=== PATIENT | male | born 1995 | race Caucasian/White ===

== ENCOUNTER 2019-05-03 20:19 | Emergency (ER) | payer OTHER ==
[2019-05-03 21:02] VITALS: BP 124/75; PULSE 105; RESP 20; TEMP 98.4
--- NOTE | 2019-05-03 21:19 | XR ---
EXAMINATION TYPE: XR ankle complete RT DATE OF EXAM: 05/03/2019 COMPARISON: NONE HISTORY: Pain TECHNIQUE: 3 views FINDINGS: Ankle mortise is anatomic. I see no fracture nor dislocation. Joint spaces are normal. IMPRESSION: Negative right ankle exam.
--- NOTE | 2019-05-03 21:19 | XR ---
EXAMINATION TYPE: XR foot complete RT DATE OF EXAM: 05/03/2019 COMPARISON: NONE HISTORY: Foot pain TECHNIQUE: 3 views FINDINGS: Metatarsals are intact. I see no fracture nor dislocation. Joint spaces are normal. IMPRESSION: Negative right foot exam.
--- NOTE | 2019-05-03 22:01 | ED ---
Lower Extremity Injury HPI - General Chief Complaint: Extremity Injury, Lower Stated Complaint: R Foot Injury Time Seen by Provider: 05/03/19 21:46 Source: patient Mode of arrival: ambulatory Limitations: no limitations - History of Present Illness Initial Comments: Patient is a 23-year-old male presenting to the emergency Department with complaints of right foot pain. Patient states he slipped and fell in a store 2 weeks ago and he's been having pain in the top of his foot since then. He thinks when he slipped his foot may have went underneath a cabinet. He states it hurts when he is walking. He denies any other injuries from the fall. He has no other complaints at this time. Upon arrival to the ER, his vital signs are stable. - Related Data Allergies Allergy/AdvReac Type Severity Reaction Status Date / Time No Known Allergies Allergy Verified 05/03/19 21:02 Review of Systems ROS Statement: Those systems with pertinent positive or pertinent negative responses have been documented in the HPI. ROS Other: All systems not noted in ROS Statement are negative. Past Medical History Past Medical History: No Reported History History of Any Multi-Drug Resistant Organisms: None Reported Past Surgical History: Orthopedic Surgery Additional Past Surgical History / Comment(s): lt knee Past Psychological History: No Psychological Hx Reported Smoking Status: Current every day smoker Past Alcohol Use History: None Reported Past Drug Use History: None Reported General Exam - General Exam Comments Initial Comments: GENERAL: Well-appearing, well-nourished and in no acute distress. HEAD: Atraumatic, normocephalic. EYES: Pupils equal round and reactive to light, extraocular movements intact, sclera anicteric, conjunctiva are normal. ENT: Moist mucous membranes. NECK: Normal range of motion, supple without lymphadenopathy or JVD. LUNGS: Breath sounds clear to auscultation bilaterally and equal. No wheezes rales or rhonchi. HEART: Regular rate and rhythm without murmurs, rubs or gallops. ABDOMEN: Soft, nontender, normoactive bowel sounds. No guarding, no rebound. No masses appreciated. EXTREMITIES: Mild pain with palpation of dorsal aspect of the right foot. There is mild bruising to the area. No swelling. He is neurovascular intact. Patient is full range of motion of his toes and ankle. No clubbing or cyanosis. NEUROLOGICAL: Normal speech, normal gait. PSYCH: Normal mood, normal affect. SKIN: Warm, Dry, normal turgor, no rashes or lesions noted. Limitations: no limitations Course Vital Signs 05/03/19 21:00 Temperature 98.4 F Pulse Rate 105 H Respiratory 20 Rate Blood Pressure 124/75 O2 Sat by Pulse 100 Oximetry Medical Decision Making - Medical Decision Making Patient is a 23-year-old male presenting of right foot pain that happened after slip and fall 2 weeks ago. X-rays reveal no acute fractures dislocations. Discussed with patient this most likely a contusion to the top of the foot. He'll continue to use ice and Motrin for discomfort. He will follow-up if symptoms persist. He is in agreement with this plan of care. He is stable for discharge. Disposition Clinical Impression: Contusion of right foot Disposition: HOME SELF-CARE Condition: Stable Instructions (If sedation given, give patient instructions): Foot Contusion (ED) Additional Instructions: Please return to the Emergency Department if symptoms worsen or any other concerns. Continue to ice the area as well as ibuprofen for pain. Follow-up with PCP in 1-2 weeks if symptoms persist. Is patient prescribed a controlled substance at d/c from ED?: No Referrals: None,Stated [Primary Care Provider] - 1-2 days
== END 2019-05-03 22:08 | disposition home or self-care (01) ==
LOC: EC 20:19
DX: S90.31XA Contusion of right foot, initial encounter (principal); F17.200 Nicotine dependence, unspecified, uncomplicated; W01.0XXA Fall on same level from slipping, tripping and stumbling without subsequent striking against object, initial encounter; Y92.512 Supermarket, store or market as the place of occurrence of the external cause
CPT/HCPCS: 99283

== ENCOUNTER 2019-06-11 11:16 | Emergency (ER) | payer SELFPAY ==
[2019-06-11 11:29] VITALS: BP 105/73; PULSE 109; RESP 18; TEMP 100.3
--- NOTE | 2019-06-11 11:52 | XR ---
EXAMINATION TYPE: XR foot complete LT , 3 VIEWS DATE OF EXAM ORDERED: 06/11/2019 HISTORY: injury. COMPARISON: None. FINDINGS: No fracture, dislocation or other acute osseous lesion is seen. IMPRESSION: NO ACUTE OSSEOUS LESION.
[2019-06-11] MEDS ORDERED: NAPROXEN 250 MG TAB PO STA (11:56)
[2019-06-11] MEDS ORDERED: ACETAMINOPHEN TAB 500 MG TAB PO STA (11:56)
--- NOTE | 2019-06-11 12:05 | ED ---
Lower Extremity Injury HPI - General Chief Complaint: Extremity Injury, Lower Stated Complaint: foot injury Time Seen by Provider: 06/11/19 11:44 Source: patient, RN notes reviewed, old records reviewed Mode of arrival: ambulatory Limitations: no limitations - History of Present Illness Initial Comments: This Patient is a 24-year-old male presents emergency department today for evaluation with concern for an abrasion over the dorsum of his left foot. Patient reports that he was jumping over a wooden fence while playing with the dog and scraped the top of his foot. He complains of swelling and pain with ambulation. Patient states that he's had a low-grade fever primary cc otherwise was feeling well. He denies any sick cough congestion sore throat, abdominal pain nausea or vomiting. His tetanus shot is up-to-date. - Related Data Allergies Allergy/AdvReac Type Severity Reaction Status Date / Time ibuprofen [From Motrin] Allergy Swelling Verified 06/11/19 11:30 Review of Systems ROS Statement: Those systems with pertinent positive or pertinent negative responses have been documented in the HPI. ROS Other: All systems not noted in ROS Statement are negative. Past Medical History Past Medical History: No Reported History History of Any Multi-Drug Resistant Organisms: None Reported Past Surgical History: Orthopedic Surgery Additional Past Surgical History / Comment(s): lt knee Past Psychological History: No Psychological Hx Reported Smoking Status: Current every day smoker Past Alcohol Use History: None Reported Past Drug Use History: None Reported General Exam - General Exam Comments Initial Comments: 24 year old male, no distress. Limitations: no limitations General appearance: alert, in no apparent distress Head exam: Present: atraumatic, normocephalic, normal inspection Eye exam: Present: normal appearance ENT exam: Present: normal exam Neck exam: Present: normal inspection. Absent: tenderness, meningismus, lymphadenopathy Respiratory exam: Present: normal lung sounds bilaterally. Absent: respiratory distress, wheezes, rales, rhonchi, stridor GI/Abdominal exam: Present: soft, normal bowel sounds. Absent: distended, tenderness, guarding, rebound, rigid Extremities exam: Present: normal inspection, full ROM, normal capillary refill, other (abrasion over 3cm over dorsum of foot). Absent: tenderness, pedal edema, joint swelling, calf tenderness Back exam: Present: normal inspection Neurological exam: Present: alert, oriented X3, CN II-XII intact Psychiatric exam: Present: normal affect, normal mood Skin exam: Present: warm, dry, intact, normal color. Absent: rash Course Vital Signs 06/11/19 11:27 Temperature 100.3 F H Pulse Rate 109 H Respiratory 18 Rate Blood Pressure 105/73 O2 Sat by Pulse 99 Oximetry Medical Decision Making - Medical Decision Making Patient is a 24-year-old male who presents emergency department today for evaluation for concern for an abrasion over the dorsum of his left foot Pain and Swelling after He Jumped over a Fence. At This Time Patient Does Have Range Of Motion of the Foot. Does Have Some Swelling over the Dorsum of the Foot. X- Rays Completed Name for Acute Process. TDAP Is Up-To-Date. Patient's Abrasion Was Cleaned and Dressed. All Questions Answered Return Parameters Were Discussed. - Radiology Data Radiology results: report reviewed Foot x-rays negative for any acute osseous lesion. Disposition Clinical Impression: Abrasion, Foot sprain Disposition: HOME SELF-CARE Condition: Good Instructions (If sedation given, give patient instructions): Abrasion (ED), Foot Sprain (ED) Additional Instructions: Please use medication as discussed. GEN for any signs of infection including redness swelling or drainage. Keep the area clean and dry. Use soap and water to clean the abrasion with antibiotic ointment. Use the SHARRI wrap as discussed. Please follow up with family doctor if symptoms have not improved over the next two days. Please return to the emergency room if your symptoms increase or worsen or for any other concerns. Is patient prescribed a controlled substance at d/c from ED?: No Referrals: None,Stated [Primary Care Provider] - 1-2 days Gabe Pickett MD [REFERRING] - 1-2 days Time of Disposition: 12:04
== END 2019-06-11 12:16 | disposition home or self-care (01) ==
LOC: EC 11:16
DX: S93.602A Unspecified sprain of left foot, initial encounter (principal); F17.200 Nicotine dependence, unspecified, uncomplicated; Z88.6 Allergy status to analgesic agent; W22.8XXA Striking against or struck by other objects, initial encounter
CPT/HCPCS: 99284

== ENCOUNTER 2019-07-21 05:30 | Emergency (ER) | payer SELFPAY ==
[2019-07-21 05:38] VITALS: BP 123/71; PULSE 78; RESP 18; TEMP 98
[2019-07-21] MEDS ORDERED: ACET/COD 300 MG/30 MG STARTER PACK 6 TAB BTL PO STA (06:09)
--- NOTE | 2019-07-21 06:10 | ED ---
Extremity Problem HPI - General Chief complaint: Extremity Problem,Nontraumatic Stated complaint: R arm weakness Time Seen by Provider: 07/21/19 06:02 Source: patient, RN notes reviewed Mode of arrival: ambulatory Limitations: no limitations - History of Present Illness Initial comments: 24-year-old male presents emergency department to complaint of arm pain. Patient states primarily his right arm. 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 Patient he grabs the bags and throws them into the back in the same direction each time. Patient is right-hand dominant. No paresthesias. Patient states that hurts when he moves his wrist or makes a fist. Patient denies any trauma. Patient prior surgeries. No pain past his mid forearm. - Related Data Previous Rx's Medication Instructions Recorded predniSONE 50 mg PO DAILY #5 tab 07/21/19 Allergies Allergy/AdvReac Type Severity Reaction Status Date / Time bee venom protein (honey bee) Allergy Anaphylaxis Verified 07/21/19 05:38 cat dander Allergy Wheezing Verified 07/21/19 05:38 ibuprofen [From Motrin] Allergy Swelling Verified 06/11/19 11:30 Review of Systems ROS Statement: Those systems with pertinent positive or pertinent negative responses have been documented in the HPI. ROS Other: All systems not noted in ROS Statement are negative. Past Medical History Past Medical History: Asthma History of Any Multi-Drug Resistant Organisms: None Reported Past Surgical History: Orthopedic Surgery Additional Past Surgical History / Comment(s): lt knee Past Psychological History: No Psychological Hx Reported Smoking Status: Current every day smoker Past Alcohol Use History: Rare Past Drug Use History: Marijuana General Exam Limitations: no limitations General appearance: alert, in no apparent distress Head exam: Present: atraumatic, normocephalic, normal inspection Eye exam: Present: normal appearance, PERRL, EOMI. Absent: scleral icterus, conjunctival injection, periorbital swelling ENT exam: Present: normal exam, normal oropharynx, mucous membranes moist Neck exam: Present: normal inspection, full ROM. Absent: tenderness, meningismus, lymphadenopathy Respiratory exam: Present: normal lung sounds bilaterally. Absent: respiratory distress, wheezes, rales, rhonchi, stridor Cardiovascular Exam: Present: regular rate, normal rhythm, normal heart sounds. Absent: systolic murmur, diastolic murmur, rubs, gallop, clicks Extremities exam: Present: other (Pain with radial deviation, wrist flexion-extension mild tenderness over the proximal forearm and wrist region no erythema no swelling radial pulses equal bilaterally, cap refill less than 2 seconds) Course Vital Signs 07/21/19 05:33 Temperature 98 F Pulse Rate 78 Respiratory 18 Rate Blood Pressure 123/71 O2 Sat by Pulse 100 Oximetry Medical Decision Making - Medical Decision Making 24-year-old male presented for arm pain. 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 Patient treated for acute tendinitis. Patient has ALLERGY to ibuprofen was started on prednisone advised to take 2 days off work, rest, ice. Patient will follow-up PCP or orthopedics. Disposition Clinical Impression: Tendinitis of right wrist Disposition: HOME SELF-CARE Condition: Stable Instructions (If sedation given, give patient instructions): Tendinitis (ED) Additional Instructions: Please return to the Emergency Department if symptoms worsen or any other concerns. Prescriptions: predniSONE 50 mg PO DAILY #5 tab Is patient prescribed a controlled substance at d/c from ED?: No Referrals: None,Stated [Primary Care Provider] - 1-2 days Time of Disposition: 06:10
== END 2019-07-21 06:17 | disposition home or self-care (01) ==
LOC: EC 05:30
DX: M77.9 Enthesopathy, unspecified (principal); M62.81 Muscle weakness (generalized); F17.200 Nicotine dependence, unspecified, uncomplicated; Z91.030 Bee allergy status; Z91.048 Other nonmedicinal substance allergy status; Z88.6 Allergy status to analgesic agent; Z98.890 Other specified postprocedural states
CPT/HCPCS: 99283

== ENCOUNTER 2020-06-06 21:23 | Emergency (ER) | payer OTHER ==
[2020-06-06 21:40] VITALS: TEMP 97.3
[2020-06-06] MEDS ORDERED: HYDROmorphone 1 MG/ML 1 ML SYRINGE IVP STA (21:56)
[2020-06-06] MEDS ORDERED: SODIUM CHLORIDE 0.9% 1,000 ML IV STA (21:56)
[2020-06-06 22:15] LABS: Basophils # (A) 0.1 k/uL (0-0.2); Basophils % (A) 1 %; Eosinophils # (A) 0.4 k/uL (0-0.7); Eosinophils % (A) 3 %; HCT 45.5 % (39.0-53.0); HGB 15.7 gm/dL (13.0-17.5); Lymphocytes # (A) 2.6 k/uL (1.0-4.8); Lymphocytes % (A) 20 %; MCH 30.4 pg (25.0-35.0); MCHC 34.4 g/dL (31.0-37.0); MCV 88.4 fL (80.0-100.0); Mean Platelet Volume 7.7; Monocytes # (A) 0.6 k/uL (0-1.0); Monocytes % (A) 5 %; Neutrophils # (A) 9.1 k/uL (1.3-7.7); Neutrophils % (A) 70 %; Platelet Count 166 k/uL (150-450); RBC 5.15 m/uL (4.30-5.90); RDW 11.9 % (11.5-15.5); WBC 12.9 k/uL (3.8-10.6)
[2020-06-06 22:25] LABS: ALT 21 U/L (4-49); AST 41 U/L (17-59); African American GFR (CKD) >90 (>60 ml/min/1.73 sqM); Albumin 4.5 g/dL (3.5-5.0); Alcohol <10 mg/dL; Alkaline Phosphatase 86 U/L (38-126); Anion Gap 7 mmol/L; Blood Urea Nitrogen 11 mg/dL (9-20); Calcium 9.3 mg/dL (8.4-10.2); Carbon Dioxide 30 mmol/L (22-30); Chloride 102 mmol/L (98-107); Creatine Kinase 470 U/L (55-170); Glucose 125 mg/dL (74-99); Non-African American GFR(CKD) >90 (>60 ml/min/1.73 sqM); Sodium 139 mmol/L (137-145); Total Bilirubin 0.9 mg/dL (0.2-1.3); Total Protein 7.1 g/dL (6.3-8.2)
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
[2020-06-06 23:24] VITALS: BP 122/84; PULSE 84; RESP 16
[2020-06-06] MEDS ORDERED: ACET/COD 300 MG/30 MG STARTER PACK 6 TAB BTL PO STA (23:54)
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
[2020-06-07 00:11] LABS: Appearance,Urine Clear (Clear); Bilirubin,Urine Negative (Negative); Blood,Urine Negative (Negative); Color,Urine Yellow; Glucose,Urine (UA) Negative (Negative); Ketones,Urine Negative (Negative); Leukocyte Esterase,Urine Negative (Negative); Nitrite,Urine Negative (Negative); Protein,Urine Negative (Negative); Specific Gravity,Urine 1.041 (1.001-1.035); Urobilinogen,Urine <2.0 mg/dL (<2.0)
[2020-06-07 00:21] LABS: Amphetamine Screen,Urine Not Detected (NotDetected); Barbiturate Screen,Urine Not Detected (NotDetected); Benzodiazepines Screen,Urine Not Detected (NotDetected); Cocaine Screen,Urine Not Detected (NotDetected); Methadone Screen, Urine Not Detected (NotDetected); Opiate Screen,Urine Not Detected (NotDetected); Oxycodone Screen, Urine Not Detected (NotDetected); Phencyclidine Screen,Urine Not Detected (NotDetected); Tricyclic Antidepressant,Urine Not Detected (NotDetected); Urn Cannabinoid Scrn Detected (NotDetected)
== END 2020-06-07 00:09 | disposition home or self-care (01) ==
LOC: EC 21:23
DX: S09.90XA Unspecified injury of head, initial encounter (principal); J45.909 Unspecified asthma, uncomplicated; F12.90 Cannabis use, unspecified, uncomplicated; F17.200 Nicotine dependence, unspecified, uncomplicated; V49.9XXA Car occupant (driver) (passenger) injured in unspecified traffic accident, initial encounter
CPT/HCPCS: 36415; 93005; 80053; 82550; 85025; 81003; 80306; 80320; 72125; 70450; 71260; 74177; 99284; 96374; 96361; J1170; Q9967

== ENCOUNTER 2020-06-08 22:49 | Emergency (ER) | payer OTHER ==
[2020-06-08 23:16] VITALS: RESP 17
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
[2020-06-09] MEDS ORDERED: diphenhydrAMINE 50 MG CAP PO STA (00:30)
[2020-06-09] MEDS ORDERED: ONDANSETRON 4 MG/2 ML VIAL IM STA (00:30)
[2020-06-09] MEDS ORDERED: MORPHINE SULFATE 4 MG/ML SYRINGE IM STA (00:30)
[2020-06-09] MEDS ORDERED: ACET/COD 300 MG/30 MG STARTER PACK 6 TAB BTL PO STA (00:53)
[2020-06-09 01:03] VITALS: BP 119/74; PULSE 65; TEMP 98.1
== END 2020-06-09 01:01 | disposition home or self-care (01) ==
LOC: EC 22:49
DX: S62.307A Unspecified fracture of fifth metacarpal bone, left hand, initial encounter for closed fracture (principal); R51.9 Headache, unspecified; J45.909 Unspecified asthma, uncomplicated; F12.90 Cannabis use, unspecified, uncomplicated; F17.200 Nicotine dependence, unspecified, uncomplicated; V43.52XA Car driver injured in collision with other type car in traffic accident, initial encounter; Y93.I9 Activity, other involving external motion
CPT/HCPCS: 73130; 70450; 99284; 29125; 96372 ×2; J2270; J2405; 99282

== ENCOUNTER 2020-09-25 22:21 | Emergency (ER) | payer OTHER ==
--- NOTE | 2020-09-25 22:54 | XR ---
EXAMINATION TYPE: XR ribs LT w pa chest xray DATE OF EXAM: 09/25/2020 COMPARISON: None HISTORY: Left-sided rib pain TECHNIQUE: 5 views FINDINGS: Heart and mediastinum are normal. Lungs are clear of infiltrate. There is no pleural effusi on or pneumothorax. Trachea is midline. The left shoulder appears intact. I see no evidence of a left -sided rib fracture. IMPRESSION: Normal chest. Normal left ribs.
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
[2020-09-26 00:31] LABS: Appearance,Urine Cloudy (Clear); Bilirubin,Urine Negative (Negative); Blood,Urine Large (Negative); Calcium Oxalate Crystals,Urine Rare /hpf; Color,Urine Yellow; Glucose,Urine (UA) Negative (Negative); Ketones,Urine Trace (Negative); Leukocyte Esterase,Urine Negative (Negative); Mucus,Urine Many /hpf; Nitrite,Urine Negative (Negative); Protein,Urine 2+ (Negative); RBC,Urine 141 /hpf (0-5); Specific Gravity,Urine 1.026 (1.001-1.035); Squamous Epithelial Cell,Urine <1 /hpf (0-4); WBC,Urine 14 /hpf (0-5)
[2020-09-26] MEDS ORDERED: MORPHINE SULFATE 4 MG/ML SYRINGE IV STA (00:36)
[2020-09-26] MEDS ORDERED: SODIUM CHLORIDE 0.9% 1,000 ML IV STA ×2 (00:36→02:34)
[2020-09-26 00:38] LABS: Amphetamine Screen,Urine Detected (NotDetected); Barbiturate Screen,Urine Not Detected (NotDetected); Benzodiazepines Screen,Urine Not Detected (NotDetected); Cocaine Screen,Urine Not Detected (NotDetected); Methadone Screen, Urine Not Detected (NotDetected); Opiate Screen,Urine Not Detected (NotDetected); Oxycodone Screen, Urine Not Detected (NotDetected); Phencyclidine Screen,Urine Not Detected (NotDetected); Tricyclic Antidepressant,Urine Not Detected (NotDetected); Urn Cannabinoid Scrn Detected (NotDetected)
[2020-09-26 01:23] LABS: Basophils % (A) 0 %; Eosinophils # (A) 0.1 k/uL (0-0.7); Eosinophils % (A) 0 %; HCT 45.7 % (39.0-53.0); HGB 15.8 gm/dL (13.0-17.5); Lymphocytes # (A) 1.3 k/uL (1.0-4.8); Lymphocytes % (A) 7 %; MCH 31.2 pg (25.0-35.0); MCHC 34.4 g/dL (31.0-37.0); MCV 90.5 fL (80.0-100.0); Mean Platelet Volume 8.1; Monocytes % (A) 5 %; Neutrophils # (A) 16.2 k/uL (1.3-7.7); Neutrophils % (A) 87 %; Platelet Count 205 k/uL (150-450); RBC 5.05 m/uL (4.30-5.90); WBC 18.6 k/uL (3.8-10.6)
[2020-09-26] MEDS ORDERED: HYDROmorphone 1 MG/ML 1 ML SYRINGE IVP STA ×3 (01:28→03:14)
[2020-09-26 01:32] LABS: INR 1.1 (<1.2); Partial Thromboplastin Time 23.6 sec (22.0-30.0); Prothrombin Time 11.5 sec (9.0-12.0)
[2020-09-26 01:34] LABS: ALT 19 U/L (4-49); AST 42 U/L (17-59); African American GFR (CKD) >90 (>60 ml/min/1.73 sqM); Albumin 4.8 g/dL (3.5-5.0); Alkaline Phosphatase 88 U/L (38-126); Anion Gap 10 mmol/L; Blood Urea Nitrogen 13 mg/dL (9-20); Calcium 9.6 mg/dL (8.4-10.2); Carbon Dioxide 26 mmol/L (22-30); Chloride 100 mmol/L (98-107); Glucose 104 mg/dL (74-99); Magnesium 2.1 mg/dL (1.6-2.3); Non-African American GFR(CKD) >90 (>60 ml/min/1.73 sqM); Sodium 136 mmol/L (137-145); Total Bilirubin 1.1 mg/dL (0.2-1.3); Total Protein 7.4 g/dL (6.3-8.2)
[2020-09-26 01:38] LABS: Potassium 4.2 mmol/L (3.5-5.1)
[2020-09-26] MEDS ORDERED: TRANEXAMIC ACID 1,000 MG in SODIUM CHLORIDE 0.9% 250 ML IV ONE (02:00)
[2020-09-26] MEDS ORDERED: TRANEXAMIC ACID 1,000 MG in SODIUM CHLORIDE 0.9% 100 ML IV ONE (02:00)
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
--- NOTE | 2020-09-26 02:52 | CT ---
EXAMINATION TYPE: CT angio abdomen pelvis DATE OF EXAM: 09/26/2020 COMPARISON: Today HISTORY: Splenic laceration CT DLP: mGycm Automated exposure control for dose reduction was used. The IV contrast was Isovue 100 mL. There are 3-D post processed images. Images obtained from the diaphragm to the floor the pelvis. There is large amount of intermediate density fluid in the abdomen consistent with hemoperitoneum. Th ere is linear defect through the posterior spleen related to lacerations. There is normal contrast op acification of the abdominal aorta. There is arterial flow in the celiac artery and superior mesenter ic artery. There is arterial flow in the distal splenic artery. I see no definite contrast extravasat ion at the spleen. There is arterial flow in both renal arteries. Renal arteries appear intact. There is arterial flow in the iliac and femoral arteries. There is no evidence of aneurysm or dissection. There is no evidence of hemodynamic stenosis. There is contrast in the urinary bladder. There is no evidence of free air. There is no sign of a bowel obstruction. Liver appears intact. IMPRESSION: No evidence of active bleeding. Large hemoperitoneum. Splenic laceration. The amount of hemoperitoneu m appears not significantly different than the exam one hour and 20 minutes ago. There is more concen trated high density material in the left paracolic gutter than first exam that is suggestive of some persistent active bleeding.
[2020-09-26 03:00] LABS: HGB 7.1 gm/dL (13.0-17.5); MCH 31.4 pg (25.0-35.0); MCHC 33.8 g/dL (31.0-37.0); MCV 93.1 fL (80.0-100.0); Mean Platelet Volume 8.1; RBC 2.26 m/uL (4.30-5.90); RDW 12.7 % (11.5-15.5)
[2020-09-26] MEDS ORDERED: LORazepam 2 MG/ML INJ IV STA (03:14)
[2020-09-26 03:33] VITALS: RESP 16
[2020-09-26 03:54] LABS: Band Neutrophils % 1 %; Basophils # (M) 0.08 k/uL (0-0.2); Lymphocytes # (M) 0.88 k/uL (1.0-4.8); Monocytes # (M) 0.32 k/uL (0-1.0); Neutrophils % (M) 83 %; Nucleated Red Blood Cells 0 /100 WBC (0-0); Total Cells Counted 100
[2020-09-26 03:56] LABS: Platelet Count 80 k/uL (150-450)
--- NOTE | 2020-09-26 04:29 | CT ---
EXAMINATION TYPE: CT abdomen pelvis wo con DATE OF EXAM: 09/26/2020 COMPARISON: One hour ago HISTORY: r/o bleeding CT DLP: 487.4 mGycm Automated exposure control for dose reduction was used. Images obtained from the diaphragm to the floor the pelvis without contrast. There is pre-existing contrast from the recent angiogram. There is large amount of intermediate densi ty fluid throughout the abdomen consistent with hemoperitoneum. There is a linear 3.5 x 1 cm area of high attenuation inferior and posterior and medial to the spleen. This is consistent with some active bleeding that has occurred since the angiogram one hour ago. This could be some contrast extravasati on. There is contrast opacification of the kidneys with normal excretion in the ureters. No evidence of f ocal renal abnormality. There is no evidence of free air. IMPRESSION: There is evidence of active splenic bleeding in the left upper quadrant compared to the exam performe d one hour ago.
[2020-09-26 05:10] VITALS: BP 117/81; PULSE 117; TEMP 98
== END 2020-09-26 05:21 | disposition short-term general hospital (02) ==
LOC: EC 22:21
DX: S36.09XA Other injury of spleen, initial encounter (principal); K66.1 Hemoperitoneum; R07.81 Pleurodynia; J45.909 Unspecified asthma, uncomplicated; F17.200 Nicotine dependence, unspecified, uncomplicated; F12.90 Cannabis use, unspecified, uncomplicated; Z88.6 Allergy status to analgesic agent; Z91.030 Bee allergy status; Y08.02XA Assault by strike by baseball bat, initial encounter
CPT/HCPCS: 99291 ×2; 99292 ×2; 96374 ×2; 96375 ×3; 96376 ×2; 86900; 86901; 80053; 83605; 83735; 84100; 84484; 85025; 85610; 85730; 86850; 86920; 81001; 80306; 71101; 71260; 74176; 74177; 74174; P9016; J2060; J2270; J1170; Q9967 ×2; 96361